=== PATIENT | female | born 1965 | race Caucasian/White ===

== ENCOUNTER 2023-03-09 05:40 | Observation (INO) ==
--- NOTE | 2023-02-08 09:48 | PAT Medication Instructions ---
Medication Instructions Date of Service February 08, 2023 Home Medications Lactobacillus acidophilus 1.5 mg (250 million cell) capsule (Probiotic Acidophilus) 1,000 mmu cells PO QAM celecoxib 200 mg capsule (Celebrex) 200 mg PO Q2D PRN Pain glucosamine-chondroitin 250 mg-200 mg tablet (Osteo Bi-Flex) 1 tab PO QAM ibuprofen 800 mg tablet 800 mg PO UD PRN Pain loratadine 10 mg tablet 10 mg PO QAM oxybutynin chloride 5 mg tablet 5 mg PO QAM ASK your prescriber and surgeon celecoxib 200 mg capsule (Celebrex) 200 mg PO Q2D PRN Pain ibuprofen 800 mg tablet 800 mg PO UD PRN Pain STOP taking 2 weeks before surgery glucosamine-chondroitin 250 mg-200 mg tablet (Osteo Bi-Flex) 1 tab PO QAM DO NOT take the morning of surgery Lactobacillus acidophilus 1.5 mg (250 million cell) capsule (Probiotic Acidophilus) 1,000 mmu cells PO QAM loratadine 10 mg tablet 10 mg PO QAM oxybutynin chloride 5 mg tablet 5 mg PO QAM OTHERWISE NOTHING TO EAT OR DRINK AFTER MIDNIGHT: Other Notes If you have any questions please call us at [phone] or [phone] or [phone] or [phone]
--- NOTE | 2023-02-17 14:57 | Anesthesiology Consultation ---
Date of Service February 17, 2023 Assessment & Plan (1) Encounter for pre-operative examination: - anesthesia concerns: patient states does NOT want neuraxial anesthesia due to anxiety/concerns regarding this including chronic significant back pain. She denies concerns with peripheral nerve block. General vs neuraxial anesthesia discussed. Anesthesia with R TKA 7 yrs ago unknown, patient believes was done under general anesthesia-reports no complications. Final discussion for patient with anesthesiologist day of surgery. - Outpatient joint assessment: Patient is currently scheduled for inpatient pathway. If re-evaluated pending system levels during current pandemic/surgeon requests outpatient pathway, patient is not recommended candidate for outpatient joint program from anesthesia standpoint. She expresses concerns with same day discharge. Chart Review Chart Review: Acceptable Risk for Surgery and Patient seen in Pre Admission Testing Teaching & Discussion Pre-Anesthesia Teaching/Discussion Notes: Instructed NPO after midnight before surgery, except medications with 15 cc of water. Medication instructions provided according to the PAT guidelines. History Surgery Operation Date: 03/09/23 14:50 Proposed Procedures p Left Total Knee Arthroplasty - Parminder Welch MD Height/Weight Height: 5 ft 4 in Weight: 94.801 kg Allergies Allergy/AdvReac Type Severity Reaction Status Date / Time adhesive AdvReac Severe steri Verified 02/08/23 08:41 strips --- hives Medications Home Medications Medication Instructions Recorded Confirmed Last Taken Lactobacillus acidophilus 1.5 mg 1,000 mmu cells PO QAM 02/08/23 02/08/23 Unknown (250 million cell) capsule (Probiotic Acidophilus) celecoxib 200 mg capsule (Celebrex) 200 mg PO Q2D PRN Pain 02/08/23 02/08/23 Unknown glucosamine-chondroitin 250 mg-200 1 tab PO QAM 02/08/23 02/08/23 Unknown mg tablet (Osteo Bi-Flex) ibuprofen 800 mg tablet 800 mg PO UD PRN Pain 02/08/23 02/08/23 Unknown loratadine 10 mg tablet 10 mg PO QAM 02/08/23 02/08/23 Unknown oxybutynin chloride 5 mg tablet 5 mg PO QAM 02/08/23 02/08/23 Unknown Past Medical History Medical History (Updated 02/17/23 @ 15:02 by Aure Grissom PA-C) Anxiety no medications Chronic back pain periodically Degenerative disc disease History of COVID-19 Spring 2022 (most recent) loss taste and smell for about 1.5 weeks-mostly resolved, some residual impact on smell-denies hospitalization Hypertension lifestyle control Hypothyroidism "advised to take a low dose of thyroid medication" but patient can not tolerate the medication, lab work is borderline. follows with PCP (Piper Cordova PA-C) Patient denies h/o stroke, seizures, heart attack, heart failure, DM, blood clots or blood transfusions. Exercise / Class Metabolic Activity III < 4 Walking/Shop/Light housework (denies chest discomfort or shortness of breath with usual activities) Past Family History Family History Other No family history of adverse response to anesthesia Past Surgical History Surgical History History of adenoidectomy History of bilateral tubal ligation History of nephrectomy 2003 to donate to her son -- possibly the left kidney History of right knee joint replacement History of tonsillectomy Past Anesthesia History No Hx of Anesthesia Complications and No Family Hx of Anesthesia Complications History of PONV No Hx of PONV and No Hx of Motion Sickness Social History Smoking Status: Never smoker Do You Dip or Chew Tobacco: No Hx Alcohol Use: Yes Alcohol type: hard liquor alcohol intake frequency: holidays/special occasions only Hx Substance Use: No substance use type: does not use Review of Systems Occasional snoring, denies witnessed apneas. Patient denies chest pain, shortness of breath, dyspnea on exertion, reflux, fever, chills, cough, wheezing, or palpitations. Physical Exam Vital Signs Vitals BP 128/80 P 73 TEMP 98.7 SP02 96% on RA RESP 17 Physical Full cervical extension range of motion without pain TMD 3.5 finger breadths Mallampati Score 2 Dentition: multiple caps, denies chipped or loose teeth, caps, implants or bridges Lungs: normal respiratory effort. Good air movement, clear throughout to auscultation, no adventitious breath sounds Cardiac: regular rate and rhythm, no murmurs noted Carotid arteries: negative bruit bilat Lab Results Anesthesia Preop Results Results Anesthesia Widget: WBC 6.03 K/ul (4.8-10.8) 02/17/23 Hgb 14.3 g/dl (12.0-16.0) 02/17/23 Hct 42.7 % (37.0-47.0) 02/17/23 Plt 295 K/uL (130-400) 02/17/23 Na 142 mmol/L (136-145) 02/17/23 K 3.9 mmol/L (3.5-5.1) 02/17/23 Cl 108 mmol/L (98-107) H 02/17/23 CO2 28 mmol/L (21-32) 02/17/23 BUN 20 mg/dl (6-23) 02/17/23 Creat 0.81 mg/dl (0.6-1.2) 02/17/23 Glucose Level 84 mg/dl (70-99(Fasting)) 02/17/23 PT 10.3 Seconds (9.0-12.0) 02/17/23 PTT 26.7 Seconds (21.0-31.0) 02/17/23 INR 0.9 (0.9-1.1) 02/17/23 TSH 2.870 uIu/ml (0.300-4.500) 02/17/23 Free T4 0.88 ng/dl (0.61-1.60) 02/17/23 Urine Color Yellow 02/17/23 Urine Appearance Clear (Clear) 02/17/23 Urine pH 6.5 (4.5-7.5) 02/17/23 Urine Specific [place] 1.018 (1.000-1.030) 02/17/23 Urine Protein Negative (Negative) 02/17/23 Urine Glucose (UA) Negative (Negative) 02/17/23 Urine Ketones Negative (Negative) 02/17/23 Urine Blood Negative (Negative) 02/17/23 Urine Nitrite Negative (Negative) 02/17/23 Urine Bilirubin Negative (Negative) 02/17/23 Urine Urobilinogen Negative (Negative) 02/17/23 Urine Leukocyte Esterase Negative (Negative) 02/17/23 Blood Type O Positive 02/17/23 Antibody Screen NEGATIVE 02/17/23 Testing Electrocardiogram Date: 02/17/23 NSR with sinus arrhythmia, rate 68 bpm Chest X-Ray Date: 02/17/23 Mild S-shaped scoliosis No acute process COVID-19 Risk Screen Screening Information COVID-19 Screen Date: 02/17/23 Exposure 21 Days Family/Household +COVID Last 21 Days: No Exposure 10 Days Any COVID Exposure Last 10 Days: No Symptoms Last 10 Days Experienced COVID Sx Last 10 Days: No + COVID 0-90 Days COVID + in Last 0-90 Days: No
--- NOTE | 2023-02-27 08:25 | History & Physical Report ---
Date of Service February 27, 2023 Assessment & Plan (1) Primary osteoarthritis of left knee: Plan: Treatment options discussed with the patient. She has failed conservative measures and would like to proceed with surgical intervention. Risks, benefits and alternatives to surgery including but not limited to infection, DVT, pain, stiffness, need for revision surgery, damage to blood vessels, damage to nerves, PE, , were discussed with the patient and they wish to proceed. Plan on left total knee arthroplasty at [facility] on March [address] Welch. Plan on aspirin 81 mg twice daily for 1 month postop for DVT prophylaxis. We will plan on outpatient physical therapy. All questions answered. Patient will follow-up postoperatively. History of Present Illness Chief Complaint: Left knee pain Primary Care Provider: NO PCP 57-year-old female with past medical history significant for previous right total knee arthroplasty, hypertension, hypothyroidism who presents with ongoing left knee pain. Patient has failed conservative measures including injections. Her pain is interfering with her daily activities. She would like to proceed with surgical intervention. Patient denies headaches, sweats, fevers, chills, double vision, blurred vision, cough, sore throat, dysphagia, chest pain, sob, wheezing, n/v/d/c, numbness, tingling, fatigue, urinary symptoms, mood disorders. ROS positive for left knee pain and stiffness. Allergies Allergy/AdvReac Type Severity Reaction Status Date / Time adhesive Allergy Unknown BLISTERS Verified 02/18/23 13:40 FROM TAPE, STERISTRIPS No Known Drug Allergies Allergy Unknown NONE Verified 02/18/23 13:40 Home Medications Medication Instructions Recorded Confirmed Type FIBER OTC 2 tab PO QAM ##0 06/08/16 History ZANTAC 1 tab PO PRN ##0 06/08/16 History Acetaminophen (Tylenol Extra 1,000 mg PO Q8H 21 days #126 tabs 07/09/16 Rx Strength) Aspirin (Aspirin EC Low Dose) 81 mg PO BID 30 days ##0 07/09/16 Rx Celecoxib (Celebrex) 200 mg PO BID 30 days #60 caps 07/09/16 Rx Oxycodone HCl 5 - 10 mg PO Q4H PRN Pain #60 tabs 07/09/16 Rx Oxycodone HCl (Oxycontin) 10 mg PO Q12 ##20 07/09/16 Rx Lactobacillus acidophilus 1.5 mg 1,000 mmu cells PO QAM 02/08/23 02/08/23 History (250 million cell) capsule (Probiotic Acidophilus) celecoxib 200 mg capsule (Celebrex) 200 mg PO Q2D PRN Pain 02/08/23 02/08/23 History glucosamine-chondroitin 250 mg-200 1 tab PO QAM 02/08/23 02/08/23 History mg tablet (Osteo Bi-Flex) ibuprofen 800 mg tablet 800 mg PO UD PRN Pain 02/08/23 02/08/23 History loratadine 10 mg tablet 10 mg PO QAM 02/08/23 02/08/23 History oxybutynin chloride 5 mg tablet 5 mg PO QAM 02/08/23 02/08/23 History Past Med/Surg History Medical History (Updated 02/27/23 @ 08:25 by Ferny Bishop PA-C) Anxiety no medications Chronic back pain periodically Degenerative disc disease History of COVID-spring (most recent) loss taste and smell for about 1.5 weeks-mostly resolved, some residual impact on smell-denies hospitalization Hypertension lifestyle control Hypothyroidism "advised to take a low dose of thyroid medication" but patient can not tolerate the medication, lab work is borderline. follows with PCP (Piper Cordova PA-C) Surgical History (Updated 02/18/23 @ 13:40 by Araceli Fischer) History of adenoidectomy History of bilateral tubal ligation History of nephrectomy 2003 to donate to her son -- possibly the left kidney History of right knee joint replacement History of tonsillectomy Family History (System 02/18/23 @ 13:40 by Araceli Fischer) Other No family history of adverse response to anesthesia Social History (System 02/18/23 @ 13:40 by Araceli Fischer) Smoking Status: Never smoker Second Hand Exposure: No; Do You Dip or Chew Tobacco: No; Hx Alcohol Use: Yes Alcohol type: hard liquor Hx Substance Use: No Preferred Language: Cuban Communication Ability: Effective Ballistician Required: No Beliefs That Will Affect Care: None Current Living Situation: Spouse Feels Safe at Home: Yes Assistive Devices: Glasses Review of Systems All systems reviewed & are unremarkable except as noted in HPI & below Physical Exam Constitutional: well developed and well nourished; no acute distress Eyes: PERRL, conjunctivae normal, anicteric sclerae ENMT: external ear and nose normal, oropharynx normal Neck: trachea midline, no thyromegaly Respiratory: normal respiratory effort, lungs clear to auscultation Cardiovascular: RRR, no murmur, no edema Musculoskeletal: Left knee: Range of motion is 10 to 100 degrees. Valgus alignment. Tenderness lateral joint line. Mich's is positive. Stable valgus and varus stress test. Moderate effusion. Skin: no rashes, warm and dry Neurologic: patellar DTR's 2+ bilat, sensation intact Psychiatric: A+Ox3, euthymic affect Results & Data Diagnostic Findings Left knee radiographs demonstrate mild to moderate arthritic changes. Joint spaces maintained. MRI demonstrates complex tearing lateral meniscus with a radial tear and extrusion. There is areas of full-thickness cartilage loss lateral compartment.
[2023-03-09] MEDS ORDERED: METOCLOPRAMIDE HCL 10 MG TABLET PO SCH (06:00)
[2023-03-09] MEDS ORDERED: ceFAZolin 2000MG 2,000 MG/15 ML SYR IV SCH (06:00)
[2023-03-09] MEDS ORDERED: dexAMETHasone 4 MG TAB PO SCH (06:00)
[2023-03-09] MEDS ORDERED: TRANEXAMIC ACID 1,000 MG **IV Pre-op IV SCH (06:00)
[2023-03-09] MEDS ORDERED: ROPIVACAINE 0.5% HCL/PF 150 MG, BUPIVACAINE 0.75% MPF 20 ML, EPINEPHrine 30MG/30ML (OR ... INSTIL SCH (06:00)
[2023-03-09] MEDS ORDERED: LR 15ML/HR IV SCH (06:00)
[2023-03-09] MEDS ORDERED: CeleBREX 200 MG CAP PO SCH (06:00)
[2023-03-09] MEDS ORDERED: ACETAMINOPHEN 500 MG TAB PO SCH (06:00)
[2023-03-09] MEDS ORDERED: GABAPENTIN 600 MG DOSE PO SCH (06:00)
[2023-03-09] MEDS ORDERED: FAMOTIDINE 20 MG TAB PO SCH (06:00)
[2023-03-09] MEDS ORDERED: TRANEXAMIC ACID 1,000 MG **IV Intra-op IV SCH (06:00)
[2023-03-09] MEDS ORDERED: EPINEPHrine INJ 1 MG/ML AMP ONE (06:26)
[2023-03-09] MEDS ORDERED: BUPIVACAINE 0.5 % 5 MG/1 ML PF 10ML VIAL ONE (06:26)
[2023-03-09] MEDS ORDERED: BUPIVACAINE 0.25% PF 30 ML VIAL ONE (06:27)
[2023-03-09] MEDS ORDERED: DEXAMETHASONE SOD INJ 4 MG/ML VIAL ONE (06:27)
[2023-03-09] MEDS ORDERED: PROPOFOL IV EMULSION 10 MG/ML 20 ML VIAL IV ONE ×2 (06:57→09:14)
[2023-03-09] MEDS ORDERED: MIDAZOLAM HCL 1 MG/ML 2ML VIAL ONE ×2 (06:58→08:05)
[2023-03-09] MEDS ORDERED: fentaNYL citrate PF 100 MCG/2 ML VIAL ONE (06:58)
[2023-03-09] MEDS ORDERED: ORTHO JOINT ANESTHETIC ONE (07:08)
[2023-03-09] MEDS ORDERED: ATROPINE SULFATE 0.1 MG/ML 10ML SYR IV PRN (07:13)
[2023-03-09] MEDS ORDERED: PROMETHAZINE HCL 6.25 MG in SODIUM CHLORIDE 0.9% 50 ML IV PRN (07:13)
[2023-03-09] MEDS ORDERED: fentaNYL citrate PF 100 MCG/2 ML VIAL IV PRN (07:13)
[2023-03-09] MEDS ORDERED: ePHEDrine sulfate 50 MG/ML AMP IV PRN (07:13)
[2023-03-09] MEDS ORDERED: ONDANSETRON INJ 2 MG/ML 2 ML VIAL IV PRN ×2 (07:13→11:41)
--- NOTE | 2023-03-09 07:13 | Anesthesiology Consultation ---
Date of Service March 09, 2023 Assessment & Plan Chart Review Chart Review: Acceptable Risk for Surgery and Patient NOT seen in Pre Admission Testing Consults Requested none ASA ASA3 Proposed Anesthesia Anesthesia Type: MAC Spinal Regional Regional Laterality: Left Site: Adductor Canal Risk / Benefits Reviewed With: PT / POA / Parent / Guardian, Accepts Plan and Informed Consent Obtained Additional Notes extensive conversation regarding spinal versus general. i explained that either would be acceptable method of anesthesia, she did have spinal in 2016. she elects to proceed with spinal anesthesia. History Surgery Operation Date: 03/09/23 07:40 Proposed Procedures p Left Total Knee Arthroplasty - Parminder Welch MD Height/Weight Height: 5 ft 4 in Weight: 97.579 kg Allergies Allergy/AdvReac Type Severity Reaction Status Date / Time adhesive Allergy Unknown BLISTERS Verified 03/09/23 06:09 FROM TAPE, STERISTRIPS No Known Drug Allergies Allergy Unknown NONE Verified 03/09/23 06:09 Medications Home Medications Medication Instructions Recorded Confirmed Last Taken FIBER OTC 2 tab PO QAM ##0 06/08/16 03/09/23 Unknown ZANTAC 1 tab PO PRN ##0 06/08/16 03/09/23 Unknown Acetaminophen (Tylenol Extra 1,000 mg PO Q8H 21 days #126 tabs 07/09/16 03/09/23 Unknown Strength) Aspirin (Aspirin EC Low Dose) 81 mg PO BID 30 days ##0 07/09/16 03/09/23 Unknown Celecoxib (Celebrex) 200 mg PO BID 30 days #60 caps 07/09/16 03/09/23 03/08/23 09:00 Oxycodone HCl 5 - 10 mg PO Q4H PRN Pain #60 tabs 07/09/16 03/09/23 Unknown Oxycodone HCl (Oxycontin) 10 mg PO Q12 ##20 07/09/16 03/09/23 Unknown Lactobacillus acidophilus 1.5 mg 1,000 mmu cells PO QAM 02/08/23 03/09/23 03/08/23 09:00 (250 million cell) capsule (Probiotic Acidophilus) celecoxib 200 mg capsule (Celebrex) 200 mg PO Q2D PRN Pain 02/08/23 03/09/23 03/08/23 09:00 glucosamine-chondroitin 250 mg-200 1 tab PO QAM 02/08/23 03/09/23 02/17/23 mg tablet (Osteo Bi-Flex) ibuprofen 800 mg tablet 800 mg PO UD PRN Pain 02/08/23 03/09/23 Unknown loratadine 10 mg tablet 10 mg PO QA 02/08/23 03/09/23 03/08/23 09:00 oxybutynin chloride 5 mg tablet 5 mg PO QA 02/08/23 03/09/23 03/08/23 09:00 Active Medications Generic Name Dose Route Start Last Admin Trade Name Frerachael PRN Reason Stop Dose Admin Acetaminophen 1,000 mg 03/09/23 06:00 03/09/23 06:24 Acetaminophen 500 Mg Tab PO 03/09/23 18:00 1,000 mg PREOP JANENE Administration Celecoxib 200 mg 03/09/23 06:00 03/09/23 06:25 Celebrex 200 Mg Cap PO 03/09/23 18:00 200 mg PREOP JANENE Administration Dexamethasone 8 mg 03/09/23 06:00 03/09/23 06:24 Dexamethasone 4 Mg Tab PO 03/09/23 18:00 8 mg PREOP JANENE Administration Famotidine 20 mg 03/09/23 06:00 03/09/23 06:24 Famotidine 20 Mg Tab PO 03/09/23 18:00 20 mg PREOP JANENE Administration Gabapentin 600 mg 03/09/23 06:00 03/09/23 06:24 Gabapentin 600 Mg Dose PO 03/09/23 18:00 600 mg PREOP JANENE Administration Lactated Ringer's 1,000 mls @ 15 mls/hr 03/09/23 06:00 03/09/23 06:25 Lr IV 03/10/23 05:59 15 mls/hr .Q24H JANENE Administration Metoclopramide HCl 10 mg 03/09/23 06:00 03/09/23 06:24 Metoclopramide Hcl 10 Mg Tablet PO 03/09/23 18:00 10 mg PREOP JANENE Administration NPO Date Last Intake of Fluids: 03/08/23 Time Last Intake of Fluids: 20:30 Date Last Intake of Solids: 03/08/23 Time Last Intake of Solids: 20:30 Past Medical History Medical History Anxiety no medications Chronic back pain periodically Degenerative disc disease History of COVID-spring2 (most recent) loss taste and smell for about 1.5 weeks-mostly resolved, some residual impact on smell-denies hospitalization Hypertension lifestyle control Hypothyroidism "advised to take a low dose of thyroid medication" but patient can not tolerate the medication, lab work is borderline. follows with PCP (Piper Cordova PA-C) Exercise / Class Metabolic Activity II 4-5 Yardwork/Stairs/Walk up hill Past Family History Family History (System 02/18/23 @ 13:40 by Araceli Fischer) Other No family history of adverse response to anesthesia Past Surgical History Surgical History History of adenoidectomy History of bilateral tubal ligation History of nephrectomy 2003 to donate to her son -- possibly the left kidney History of right knee joint replacement History of tonsillectomy Past Anesthesia History No Hx of Anesthesia Complications and No Family Hx of Anesthesia Complications History of PONV No Hx of PONV and No Hx of Motion Sickness Social History Smoking Status: Never smoker Do You Dip or Chew Tobacco: No Hx Alcohol Use: Yes Alcohol type: hard liquor alcohol intake frequency: holidays/special occasions only Hx Substance Use: No substance use type: does not use Physical Exam Vital Signs Last Vital Signs Temp 36.5 C 03/09/23 06:16 Pulse 75 03/09/23 06:16 Resp 22 03/09/23 06:16 BP 143/86 H 03/09/23 06:16 Pulse Ox 98 03/09/23 06:16 O2 Del Method Room Air 03/09/23 06:16 ENMT Mouth: no dentition abnormality Thyromental Distance: > or= 3.5 Finger Breadths Mallampati Class: II Neck normal visual inspection Respiratory normal respiratory effort Auscultation: lungs clear to auscultation bilaterally Cardiovascular Rate/Rhythm: regular rate and regular rhythm Psychiatric Orientation: alert Testing Electrocardiogram Date: 02/17/23 NSR with sinus arrhythmia, rate 68 bpm Chest X-Ray Date: 02/17/23 Mild S-shaped scoliosis No acute process
--- NOTE | 2023-03-09 07:23 | History & Physical Bridge Note ---
Date of Service March 09, 2023 History & Physical Bridge Note I have examined the patient, reviewed the History & Physical and in the interval since the performance of the History & Physical I have noted the following changes of clinical significance: no changes noted
[2023-03-09] MEDS ORDERED: PHENYLEPHRINE HCL 10 MG/ML VIAL ONE (08:50)
[2023-03-09] MEDS ORDERED: PHENYLEPHRINE 100MCG/ML 5ML SYR ONE (09:07)
--- NOTE | 2023-03-09 10:15 | Operative Report ---
Post Operative Report Pre & Post Diagnosis Operation Date: 03/09/23 07:40 Pre-Op Diagnosis: Left Knee Osteoarthritis Post-Op Diagnosis: Left Knee Osteoarthritis I identified the patient and participated in the time-out.: Yes Procedure Operation Date: 03/09/23 07:40 Actual Procedures p Left Total Knee Arthroplasty(Left) - Parminder Welch MD Surgeon Parminder Welch MD [facility] Family Living Professor Wilfrido RIDDLE Estimated Blood Loss 5 Findings Consistent with Post-Op Diagnosis Specimens bone cuts Drains 2 Hemovac Anesthesia Type MAC Spinal Regional Complications none Disposition Disposition: Recovery Room Indications 57-year-old female with chronic progressive osteoarthritis left knee failed conservative management. Patient had successful right knee replacement 2015. Left knee has osteoarthritis patellofemoral joint and lateral compartment close to being [id number] in the lateral compartment. Description of Procedure The patient was taken to the operating room and anesthetized under [ Spinal MAC regional block anesthesia]. Patient was placed supine on the the operating table. A pneumatic tourniquet was placed about the [ left] upper thigh. The knee exam demonstrated [ valgus knee no instability moderate effusion good range of motion moderate obesity upper thigh]. The involved leg was elevated exsanguinated with Esmarch bandage and the pneumatic tourniquet was raised to [ 325] millimeters mercury, later raised to 350 due to bleeding at lower level setting. A longitudinal incision was made across the anterior knee. Skin flaps were elevated. An incision was made into the medial retinaculum and extended up into the mid third of the quadriceps tendon and extended down to the tibial tubercle. Intra-articular findings demonstrated [ patellofemoral and lateral compartment osteoarthritis with grade 4 changes on the femoral condyle grade 3 changes tibial plateau grade 3 patellofemoral]. The knee was exposed by e xcising cruciate ligaments and menisci. The infrapatellar fat pad was resected. The fat pad over the anterior femur at the upper aspect of the articular surface was resected for placement of the component in that area. A subperiosteal peel lateral release was performed around the patella. The[ Sanz & Nephew journey2.0 posterior stabilized] total knee arthroplasty system was utilized for the procedure. The custom femoral cutting guide was pinned in position. The distal femoral cut was made. The size [ 3], 5 in 1 cutting block was placed. The anterior posterior and chamfer cuts were made. The knee was extended and a free hand cut technique was performed to the patella. The patella with was measured and the width was reproduced using a [32] patella component. 3 drill holes are made for the patella component pegs. The tibia was then subluxed. The custom tibial cutting block was pinned in position and the proximal tibial cut was made with the oscillating saw. The size [ 2] tibial trial was externally rotated in line with the tibial tubercle and pinned in position. The punch for the stem was used. The femoral trial was inserted and centered the notch cutting devices were used and the collet was placed. Tibial trials were used for the insert. The size [15mm] trial gave balanced ligaments through full range of motion. Patella tracking was assessed with range of motion. The patella tracked [ centrally]. The trials were removed. The Orthomix anesthetic cocktail was injected per protocol. The cut bone surfaces and soft tissue were copiously irrigated with pulsatile lavage saline solution. The final components were cemented with Refobacin cement. The final components were [ Sanz and nephew journey 2.0 posterior stabilized size 3 left femoral component, 2 left tibial component, 15 mm left tibial posterior stabilized polyethylene insert, 32 mm symmetrical polyethylene patella]. After the cement cured, the Betadine soak was used for 3 minutes. The knee was then copiously irrigated with pulsatile lavage saline solution. 2 drains were brought out laterally connected to Hemovac. The quadriceps tendon and medial retinaculum were closed with interr upted [id number] #1 Vicryl sutures. The knee was taken through full range of motion and repair was secure. Knee range of motion was[ 0 through 130 degrees]. the subcutaneous tissues were closed with 2-0 Vicryl sutures. The skin was closed with [ [place]]. A sterile dressing was applied. The tourniquet was let down and the patient had good capillary refill to the extremity. The patient tolerated the procedure well. My physician costumer assistant [ Wilfrido RIDDLE] participated as customer service assistant and was integral part in all aspects of the procedure including prepping, draping, leg positioning, soft tissue retraction, instrument management and assisted in the closure ,dressings application and will participate in postoperative care the patient. I attest to the content of the Intraoperative Record and any orders documented therein. Any exceptions are noted below.
--- NOTE | 2023-03-09 11:23 | Anesthesiology Progress Note ---
Date of Service March 09, 2023 Anesthesia Post Procedure Vital Signs Vital Signs: Temp Pulse Resp BP Pulse Ox O2 Del Method O2 Flow Rate 03/09/23 11:20 65 19 106/70 96 Room Air 03/09/23 11:15 56 L 15 103/64 94 Room Air 03/09/23 11:10 36.3 C L 66 20 108/66 97 Room Air 03/09/23 11:00 67 17 98/62 L 95 Room Air 03/09/23 10:50 71 19 96/50 L 95 Room Air 03/09/23 10:40 71 15 97/59 L 99 Oxymask 11 03/09/23 10:34 36.8 C 82 20 93/55 L 98 Oxymask 11 03/09/23 06:16 36.5 C 75 22 143/86 H 98 Room Air Transfer of Care Handoff Completed per policy Notes Mental Status: alert / awake / arousable Patient Amnestic to Procedure: Yes Nausea / Vomiting: adequately controlled Pain: adequately controlled Airway Patency, RR, SpO2: stable & adequate BP & HR: stable & adequate Hydration State: stable & adequate Neuraxial Anesthesia: was administered and sensory block is resolving Anesthetic Complications: no major complications apparent and Pt Satisfied with anesthetic care
[2023-03-09] MEDS ORDERED: KETOROLAC TROMETHAMINE 15 MG/ML VIAL IV PRN (11:41)
[2023-03-09] MEDS ORDERED: HYDROmorphone INJ 0.5 MG/0.5 ML SYR IV PRN (11:41)
[2023-03-09] MEDS ORDERED: MAGNESIUM HYDROXIDE SUSP 30 ML UDC PO PRN (11:41)
[2023-03-09] MEDS ORDERED: bisacodyL 10 MG SUPP PR PRN (11:41)
[2023-03-09] MEDS ORDERED: NALOXONE HCL 0.4 MG/1 ML VIAL/CARP IV PRN (11:41)
--- NOTE | 2023-03-09 11:58 | XRay Report ---
XR knee LT 1 or 2V routine CLINICAL HISTORY: Postoperative evaluation. COMPARISON: None FINDINGS: Alignment of the total left knee arthroplasty is anatomic. There is no periprosthetic frac ture or unexpected radiopaque foreign body. There are drains and skin dayan. IMPRESSION: Expected findings following total left knee arthroplasty. ACT 112: Negative or not required by law. Electronically signed by: Mandeep Puckett M.D. 03/09/2023 11:57 AM
--- NOTE | 2023-03-09 12:43 | Hospitalist Consultation ---
Date of Consultation March 09, 2023 Assessment & Plan (1) Status post total left knee replacement: (2) Primary osteoarthritis of left knee: This is a 57yo F with a PMH of OA, overactive bladder disorder who is POD#0 s/o Left Total Knee Arthroplasty by Dr. Welch. POD#0 s/o Left Total Knee Arthroplasty by Dr. Welch Per ortho for pain control, wound care, anticoagulation and activities Monitor H&H, (pre-op hgb 14.3, EBL 5ml) Continue incentive spirometry, PT/OT when appropriate (3) Anxiety: Stable, not on any medications (4) Hypertension: Not on home meds, managed with lifestyle modifications (5) Overactive bladder: Oxybutynin daily DVT Ppx: aspirin BID per ortho Code status: FULL PCP: FREDDIE Cordova ([facility]) Dispo: Obs med/surg Patient seen in collaboration with Dr. Styles. Please see addendum. I spent a total of 50 minutes coordinating, documenting, and providing care for this patient excluding time spent in the performance of separately billed services. Supervising Physician Co-Signing Physician Notes I have seen and examined the patient and have discussed the case with the provider above. I agree with the assessment and plan as stated. 57-year-old female status post left total knee arthroplasty, POD 0. Pain is controlled and she has been ambulating to and from the bathroom per nursing without much issue. Ice and surgical dressing in place. Exam is unremarkable and within normal limits. She is morbidly obese. History and medications reviewed and confirmed. Agree with management as listed above. Thank you for this consultation. We will continue to follow the patient throughout her hospital stay. DO Jensen History of Present Illness Reason for Consultation: post op med mgmt Attending Physician: Parminder Welch MD History of Present Illness This is a 57yo F with a PMH of OA, overactive bladder disorder who is POD#0 s/o Left Total Knee Arthroplasty by Dr. Welch. Resting comfortably and feeling well post-operatively. Minimal surgical site pain. No paresthesias or pain distal to surgical site. No CP or SOB. Has not yet eaten since surgery. No F/C, lightheadedness, N/V, abd pain, dysuria, diarrhea or constipation. Receives primary care from FREDDIE Cordova of [facility]. Only prescription medication is oxybutynin. Allergies Allergy/AdvReac Type Severity Reaction Status Date / Time adhesive Allergy Unknown BLISTERS Verified 03/09/23 06:09 FROM TAPE, STERISTRIPS No Known Drug Allergies Allergy Unknown NONE Verified 03/09/23 06:09 Home Medications Medication Instructions Recorded Confirmed Type FIBER OTC 2 tab PO QAM ##0 06/08/16 03/09/23 History ZANTAC 1 tab PO PRN ##0 06/08/16 03/09/23 History Oxycodone HCl 5 - 10 mg PO Q4H PRN Pain #60 tabs 07/09/16 03/09/23 Rx Oxycodone HCl (Oxycontin) 10 mg PO Q12 ##20 07/09/16 03/09/23 Rx Lactobacillus acidophilus 1.5 mg 1,000 mmu cells PO QAM 02/08/23 03/09/23 History (250 million cell) capsule (Probiotic Acidophilus) celecoxib 200 mg capsule (Celebrex) 200 mg PO Q2D PRN Pain 02/08/23 03/09/23 History glucosamine-chondroitin 250 mg-200 1 tab PO QAM 02/08/23 03/09/23 History mg tablet (Osteo Bi-Flex) ibuprofen 800 mg tablet 800 mg PO UD PRN Pain 02/08/23 03/09/23 History loratadine 10 mg tablet 10 mg PO QAM PRN Allergy Symptoms 02/08/23 03/09/23 History oxybutynin chloride 5 mg tablet 5 mg PO QAM 02/08/23 03/09/23 History acetaminophen 500 mg tablet 1,000 mg PO Q8 14 days #84 tabs 03/09/23 03/09/23 Rx (Tylenol Extra Strength) aspirin 81 mg tablet,delayed 81 mg PO BID 30 days #60 tabs 03/09/23 03/09/23 Rx release Patient History Medical History (Updated 03/09/23 @ 12:57 by Alexa Goyal PA-C) Anxiety no medications Chronic back pain periodically Degenerative disc disease History of COVID-spring (most recent) loss taste and smell for about 1.5 weeks-mostly resolved, some residual impact on smell-denies hospitalization Hypertension lifestyle control Hypothyroidism "advised to take a low dose of thyroid medication" but patient can not tolerate the medication, lab work is borderline. 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 History of right knee joint replacement History of tonsillectomy Family History Other Hypertension No family history of adverse response to anesthesia Social History (Updated 03/09/23 @ 14:33 by Alexa Goyal PA-C) Smoking Status: Never smoker Second Hand Exposure: No; Do You Dip or Chew Tobacco: No; Tobacco Cessation Education Requested by Patient: No Hx Alcohol Use: Yes Alcohol type: hard liquor Alcohol Intake Frequency: 2-3 x/Week Hx Substance Use: No Preferred Language: Peruvian Communication Ability: Effective 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 Physical Exam Physical Exam: General Appearance: WD/WN, vitals as above, NAD, sitting up in bed, pleasant, conversing easily Head: normocephalic, atraumatic Eyes: normal inspection, PERRL, conjunctivae normal ENT: external ear and nose normal, oropharynx normal Neck: normal visual inspection, trachea midline, no thyromegaly Respiratory: normal respiratory effort, lungs clear to auscultation, no wheeze, rales, rhonchi Cardiovascular: regular rate, rhythm, normal peripheral pulses, no BLE edema Abdomen/GI: normal bowel sounds, soft, nontender, no hepatosplenomegaly Extremities/Musculoskeletal: + L knee surgical dressing c/d/i, drain visualized, ice and SCDs in place, extremities motor strength 5/5 Neurologic: PERRL, no dysarthria, CN's II-XI intact bilaterally and moves all extremities Psychiatric: A+Ox3, euthymic affect Skin: no rashes, normal color, warm/dry Results & Data Results & Data Vital Signs (Past 12 Hours) Vital Signs Temp Pulse Resp BP BP Pulse Ox O2 Del Method 03/09/23 12:40 36.5 C 60 16 124/73 96 Room Air 03/09/23 12:10 36.6 C 58 L 16 103/68 97 Room Air 03/09/23 11:20 65 19 106/70 96 Room Air 03/09/23 11:15 56 L 15 103/64 94 Room Air 03/09/23 11:10 36.3 C L 66 20 108/66 97 Room Air 03/09/23 11:00 67 17 98/62 L 95 Room Air 03/09/23 10:50 71 19 96/50 L 95 Room Air 03/09/23 10:40 71 15 97/59 L 99 Oxymask 03/09/23 10:34 36.8 C 82 20 93/55 L 98 Oxymask 03/09/23 06:16 36.5 C 75 22 143/86 H 98 Room Air O2 Flow Rate 03/09/23 12:40 03/09/23 12:10 03/09/23 11:20 03/09/23 11:15 03/09/23 11:10 03/09/23 11:00 03/09/23 10:50 03/09/23 10:40 11 03/09/23 10:34 11 03/09/23 06:16
[2023-03-09] MEDS: SODIUM CHLORIDE 0.9% 1000ML 1,000 ML IV SCH (15:09)
[2023-03-09] MEDS: ACETAMINOPHEN 500 MG TAB PO SCH ×2 (15:15→22:47)
[2023-03-09] MEDS: ceFAZolin 2000MG 2,000 MG/15 ML SYR IV SCH (17:47)
[2023-03-09] MEDS: DOCUSATE SODIUM 100 MG CAP PO SCH (20:41)
[2023-03-09] MEDS: ASPIRIN 81 MG ECTAB PO SCH (20:41)
[2023-03-09] MEDS: oxyCODONE HCL IR 5 MG TAB (IMMEDIATE RELEASE) PO PRN (20:42)
[2023-03-09] MEDS ORDERED: SENNA 8.6 MG TAB PO SCH (21:00)
[2023-03-10] MEDS: SODIUM CHLORIDE 0.9% 1000ML 1,000 ML IV SCH (01:29)
[2023-03-10] MEDS: ceFAZolin 2000MG 2,000 MG/15 ML SYR IV SCH (01:36)
[2023-03-10] MEDS: oxyCODONE HCL IR 5 MG TAB (IMMEDIATE RELEASE) PO PRN (06:27)
[2023-03-10] MEDS: ACETAMINOPHEN 500 MG TAB PO SCH (06:27)
--- NOTE | 2023-03-10 06:38 | Orthopedic Progress Note ---
Date of Service March 10, 2023 Assessment & Plan (1) Primary osteoarthritis of left knee: Plan: Postop day 1 status post left total knee arthroplasty. PT/OT protocols. Weightbearing as tolerated. DVT prophylaxis-aspirin p.o. twice daily, SCDalec, ZOILA paulino. Pain management as written. A.m. labs pending. DC planning-patient planning for outpatient PT upon discharge. Admission and Anticipated Discharge Date Admission Date: March 09, 2023 Subjective Postop day 1 Patient lying in bed sleeping but easily awoken. No complaints this morning. Pain is controlled. She denies any shortness of breath, chest pain, lightheadedness. Physical Exam Physical Exam: Dressings are clean, dry, and intact. Calves are soft nontender. Neurovascular intact. Toes are mobile. She has good dorsiflexion and plantarflexion of the left foot. Hemovac drainage was 75 cc from the previous shift. Results & Data Vital Signs (Past 12 Hours) Vital Signs Temp Pulse Resp BP Pulse Ox O2 Del Method 03/10/23 06:29 36.7 C 57 L 16 109/70 97 Room Air 03/10/23 01:30 36.7 C 65 18 112/71 96 Room Air 03/09/23 22:49 36.7 C 56 L 17 98/63 L 96 Room Air 03/09/23 20:09 36.7 C 65 18 114/71 96 Room Air
[2023-03-10 06:59] LABS: Hematocrit (blood only) 37.9 % (37.0-47.0); Hemoglobin 12.3 g/dl (12.0-16.0); Mean Corpuscular Hemoglobin 29.8 pg (25.0-34.0); Mean Corpuscular Hgb Conc 32.5 g/dL (32.0-36.0); Mean Corpuscular Volume 91.8 fL (80.0-100.0); Mean Platelet Volume 10.3 fL (9.4-12.4); Platelet Count 246 K/uL (130-400); RDW Coefficient of Variation 13.1 % (11.5-14.5); RDW Standard Deviation 43.7 fL (36.4-46.3); Red Blood Count 4.13 M/uL (4.20-5.40); White Blood Count 12.91 K/ul (4.8-10.8)
[2023-03-10 07:20] LABS: BUN Creatinine Ratio 20.7 (10-20); Calcium 8.9 mg/dl (8.6-10.3); Creatinine Clr Calc Pharmacy 85.9 ml/min; Est GFR (African American) 92.1 ml/min; Est GFR (Non-African American) 79.4 ml/min; Potassium 4.3 mmol/L (3.5-5.1)
[2023-03-10] MEDS ORDERED: PANTOprazole 40 MG TAB PO SCH (09:00)
[2023-03-10] MEDS ORDERED: ADVANCED PROBIOTIC 1250 MG CAPSULE PO SCH (09:00)
[2023-03-10] MEDS ORDERED: OXYBUTYNIN CHLORIDE XL 5 MG TABCR PO SCH (09:00)
[2023-03-10] MEDS ORDERED: MULTIVITAMIN TAB PO SCH (09:00)
[2023-03-10] MEDS ORDERED: oxyBUTYnin chloride 5 MG TAB PO SCH (09:00)
[2023-03-10] MEDS ORDERED: LORATADINE 10 MG TAB PO SCH (09:00)
[2023-03-10] MEDS: ASPIRIN 81 MG ECTAB PO SCH (09:40)
[2023-03-10] MEDS: DOCUSATE SODIUM 100 MG CAP PO SCH (09:41)
--- NOTE | 2023-03-10 09:59 | Hospitalist Progress Note ---
Date of Service March 10, 2023 Assessment & Plan (1) Status post total left knee replacement: (2) Primary osteoarthritis of left knee: Plan: This is a 57yo F with a PMH of OA, overactive bladder disorder who is POD#0 s/o Left Total Knee Arthroplasty by Dr. Welch. POD#1 s/o Left Total Knee Arthroplasty by Dr. Welch Per ortho for pain control, wound care, anticoagulation and activities Monitor H&H, hgb today stable at 12.3 (pre-op hgb 14.3, EBL 5ml) Continue incentive spirometry, PT/OT when appropriate (3) Anxiety: Plan: Stable, not on any medications (4) Hypertension: Plan: Not on home meds, managed with lifestyle modifications (5) Overactive bladder: Plan: Oxybutynin daily DVT Ppx: aspirin BID per ortho Code status: FULL PCP: FREDDIE Cordova ([facility]) Dispo: Obs med/surg, plan for dc today I spent a total of 35 minutes coordinating, documenting, and providing care for this patient excluding time spent in the performance of separately billed services. Admission and Anticipated Discharge Date Admission Date: March 09, 2023 Supervising Physician Co-Signing Physician Notes delayed entry date of service noted above Attending Addendum: care coordinated with KRISTOPHER Alexa Goyal please refer to her notes for full details, I agree with her notes patient seen and examined, records reviewed by myself as well Ruddy Selby MD Subjective Seen and examined in 323. Feeling well today with minimal surgical site pain. Participated with PT without issue. No F/C, lightheadedness, CP, SOB, N/V, abdominal pain, dysuria, diarrhea. Passing flatus. Review of Systems Review of Systems: At least ten systems reviewed and negative except as noted in the HPI. Physical Exam Physical Exam: Gen: WD/WN, NAD, sitting in bedside chair, A&Ox3 HEENT: Normocephalic, atraumatic, conjunctivae moist, sclerae anicteric, mucous membranes moist Lung: Clear to Auscultation bilaterally, no wheezes/rales/rhonchi Heart: Regular rate, regular rhythm, no murmurs, rubs, or gallops Abdomen: Soft, NT, ND +BS x 4 Extremities: + L knee surgical dressing c/d/i, drain visualized, minimal edema Skin: Warm, no rash Results & Data Results & Data Vital Signs (Past 12 Hours) Vital Signs Temp Pulse Resp BP Pulse Ox O2 Del Method 03/10/23 06:29 36.7 C 57 L 16 109/70 97 Room Air 03/10/23 01:30 36.7 C 65 18 112/71 96 Room Air 03/09/23 22:49 36.7 C 56 L 17 98/63 L 96 Room Air Laboratory Results Short CBC 03/10/23 Range/Units 06:42 WBC 12.91 H (4.8-10.8) K/ul Hgb 12.3 (12.0-16.0) g/dl Hct 37.9 (37.0-47.0) % Plt Count 246 (130-400) K/uL BMP 03/10/23 06:42 Sodium 142 Potassium 4.3 Chloride 111 H Carbon Dioxide 27 BUN 17 Creatinine 0.82 Glucose 117 H Calcium 8.9 Diagnostic Findings Knee X-Ray 03/09/23 10:43 XR knee LT 1 or 2V routine CLINICAL HISTORY: Postoperative evaluation. COMPARISON: None FINDINGS: Alignment of the total left knee arthroplasty is anatomic. There is no periprosthetic fracture or unexpected radiopaque foreign body. There are drains and skin dayan. IMPRESSION: Expected findings following total left knee arthroplasty. ACT 112: Negative or not required by law. Electronically signed by: Mandeep Puckett M.D. 03/09/2023 11:57 AM
--- NOTE | 2023-03-15 08:49 | Discharge Summary ---
Date of Service March 15, 2023 Admission HPI Per Admitting Provider 57-year-old female with past medical history significant for previous right total knee arthroplasty, hypertension, hypothyroidism who presents with ongoing left knee pain. Patient has failed conservative measures including injections. Her pain is interfering with her daily activities. She would like to proceed with surgical intervention. Patient denies headaches, sweats, fevers, chills, double vision, blurred vision, cough, sore throat, dysphagia, chest pain, sob, wheezing, n/v/d/c, numbness, tingling, fatigue, urinary symptoms, mood disorders. ROS positive for left knee pain and stiffness. Admission Exam Per Admitting Provider Physical Exam Constitutional: well developed and well nourished; no acute distress Eyes: PERRL, conjunctivae normal, anicteric sclerae ENMT: external ear and nose normal, oropharynx normal Neck: trachea midline, no thyromegaly Respiratory: normal respiratory effort, lungs clear to auscultation Cardiovascular: RRR, no murmur, no edema Musculoskeletal: Left knee: Range of motion is 10 to 100 degrees. Valgus alignment. Tenderness lateral joint line. Mich's is positive. Stable valgus and varus stress test. Moderate effusion. Skin: no rashes, warm and dry Neurologic: patellar DTR's 2+ bilat, sensation intact Psychiatric: A+Ox3, euthymic affect Principal Diagnosis Left knee Osteoarthritis Discharge Data Allergies Allergy/AdvReac Type Severity Reaction Status Date / Time adhesive Allergy Unknown BLISTERS Verified 03/09/23 06:09 FROM TAPE, STERISTRIPS No Known Drug Allergies Allergy Unknown NONE Verified 03/09/23 06:09 Consultations 03/04/23 10:45 Consult Hospitalist Routine Procedures Performed Operation Date: 03/09/23 07:40 Actual Procedures p Left Total Knee Arthroplasty(Left) - Parminder Welch MD Ordered Studies 03/09/23 05:00 US - OR guided needle placemen Routine Hospital Course (1) Primary osteoarthritis of left knee: Patient:TERA STILL Admit Date:03/09/23 MR#:[id number] Att Phy:Parminder Welch M.D. Acct ID:[id number] Hilda Phy:Leila Cordova PA-C Date:1965 Fam Phy: Age:57 Location:3E Sex:F Room/Bed:E323-1 cc: ~ *NOTICE TO RECEIVING [employer]/AGENCY This information is strictly Confidential and protected under [place] law. [place] law prohibits you from making any further disclosure of this information unless further disclosure is expressly permitted by the written consent of the person to whom it pertains or is authorized by law. A general authorization for the release of medical or other information is not sufficient for this purpose. Hospital accepts no responsibility if the information is made available to any other person, INCLUDING THE PATIENT. Date of Service March 10, 2023 Assessment & Plan (1) Primary osteoarthritis of left knee: Plan: Postop day 1 status post left total knee arthroplasty. PT/OT protocols. Weightbearing as tolerated. DVT prophylaxis-aspirin p.o. twice daily, SCDs, ZOILA paulino. Pain management as written. A.m. labs pending. HI planning-patient planning for outpatient PT upon discharge. Admission and Anticipated Discharge Date Admission Date: March 09, 2023 Subjective Postop day 1 Patient lying in bed sleeping but easily awoken. No complaints this morning. Pain is controlled. She denies any shortness of breath, chest pain, lightheadedness. Physical Exam Physical Exam: Dressings are clean, dry, and intact. Calves are soft nontender. Neurovascular intact. Toes are mobile. She has good dorsiflexion and plantarflexion of the left foot. Hemovac drainage was 75 cc from the previous shift. Results & Data Vital Signs (Past 12 Hours) Vital Signs Temp Pulse Resp BP Pulse Ox O2 Del Method 03/10/23 06:29 36.7 C 57 L 16 109/70 97 Room Air 03/10/23 01:30 36.7 C 65 18 112/71 96 Room Air 03/09/23 22:49 36.7 C 56 L 17 98/63 L 96 Room Air 03/09/23 20:09 36.7 C 65 18 114/71 96 Room Air Signed By: <Electronically signed by Kam Lazar M.D.> 03/10/23 1318 <Electronically signed by Wilfrido Baltazar PA-C> 03/10/23 0638 Created:03/10/23 0636 HOSPITALIST HI NOTE: Assessment & Plan (1) Status post total left knee replacement: (2) Primary osteoarthritis of left knee: Plan: This is a 57yo F with a PMH of OA, overactive bladder disorder who is POD#0 s/o Left Total Knee Arthroplasty by Dr. Welch. POD#1 s/o Left Total Knee Arthroplasty by Dr. Welch Per ortho for pain control, wound care, anticoagulation and activities Monitor H&H, hgb today stable at 12.3 (pre-op hgb 14.3, EBL 5ml) Continue incentive spirometry, PT/OT when appropriate (3) Anxiety: Plan: Stable, not on any medications (4) Hypertension: Plan: Not on home meds, managed with lifestyle modifications (5) Overactive bladder: Plan: Oxybutynin daily DVT Ppx: aspirin BID per ortho Code status: FULL PCP: FREDDIE Cordova ([facility]) Dispo: Obs med/surg, plan for dc today Total Time Total Time Spent Total Time Spent (In Minutes): 5 Discharge Plan Discharge Items Patient Disposition: Home - Self-Care Reason For Visit: Left Knee Osteoarthritis Discharge Diagnosis: Left Knee Osteoarthritis Activity: Per Instructions section Weightbearing: Left weightbearing Weightbearing Comment: As tolerated with walker Non-emergency contact: Surgeon Call non-emergency contact if: you have any medication questions, your pain is not controlled, your temperature is above 101.5, your wound has increased redness and your wound has increased drainage Follow-up/Referrals: Parminder Welch MD [Surgeon] - (Follow up with Dr Welch or his PA in 2 weeks from the day of your surgery for your first post operative visit) PCP,NO [Physician] - Diet: Regular Addtl Attending Provider Instructions: ACTIVITY RECOMMENDATIONS: SELF CARE INSTRUCTIONS AFTER TOTAL KNEE REPLACEMENT A. You may need to continue a physical therapy program after discharge from the hospital. There are several options available to you. Your doctor will assist you in selecting the best one for you. 1. An out-patient facility 2 to 3 times a week for therapy or home therapy. 2. Continue working on all exercises taught to you in the hospital. Your goals should be to increase bending of your knee to 90 degrees and beyond and to fully straighten your knee. B. You may progress at your own pace from walking with a walker or crutches to a cane; then to no assistive devices. C. Make walking a part of your daily routine. Be up as much as comfortable with rest periods throughout the day. Rest with leg elevation is very important. Use the ice wrap frequently for the first 3-4 weeks. D. There are no restrictions on activities. You may ride in a car, shop, participate in dairy quality assurance officer and all social activities. E. Wear the long elastic stockings (ZOILA hose) 20 hours a day for 2 weeks after surgery. They can be removed several times a day for laundering and for a bath. F. You may shower 48 hours from the day of your surgery, NO tub baths, hot tubs, or swimming pools until cleared by your doctor. SPECIAL CARE INSTRUCTIONS: VERY IMPORTANT TO READ AND REVIEW A. There are a few signs you need to watch for after you are home. Call [facility] if you notice any of the followin. Increased severe knee pain. Some pain is expected especially when you exercise. 2. Increased swelling in your leg or knee; pain or swelling of the calf muscle in either lower leg. 3. Any fluid drainage from the incision. 4. Shortness of breath or chest pain. B. Please call [facility] at if you have any concerns or questions about your operation or recovery. The doctor or his nurse will return your call promptly. C. You must take antibiotics before dental work, bladder, bowel or other surgery. Your doctor will provide you with a permanent care to carry describing this precaution. IMPORTANT: * REMEMBER TO TAKE ASPIRIN, 81 MG, TWICE DAILY FOR 4 WEEKS UNLESS OTHERWISE DIRECTED. THIS IS YOUR BLOOD THINNER. * HIGH RISK PATIENTS MAY BE PRESCRIBED A STRONGER BLOOD THINNER. THIS WILL BE PROVIDED AT DISCHARGE. * CALL IF INCREASED PAIN, REDNESS, DRAINAGE OR FEVER GREATER THAT 101. * WEAR ZOILA HOSE 20 HOURS PER DAY FOR 2 WEEKS. * CHANGE YOUR DRESSING DAILY FOR THE FIRST WEEK. YOU MAY USE AN CONNER WRAP TO KEEP THE DRESSING IN PLACE. AFTER THE FIRST WEEK, YOU MAY CHANGE THE DRESSING EVERY OTHER DAY IF THE WOUND IS REMAINING DRY. KEEP THE WOUND COVERED UNTIL SEEN IN THE OFFICE. YOU MAY SHOWER IN IN 48 HOURS. DO NOT SOAK THE WOUND. NO TUB BATHS, HOT TUBS, OR SWIMMING POOLS UNTIL CLEARED BY YOUR PHYSICIAN. . FOLLOW UP VISIT: If appointment is not already scheduled: Please call [facility] to make a follow-up appointment for 2 weeks after your surgery at . Stand-Alone Forms: My [facility] [employer], Smoking Cessation Medications and DC Order Prescriptions: New aspirin 81 mg Tablet,Delayed Release (Dr/Ec) 81 mg PO BID 30 Days Qty: 60 0RF acetaminophen [Tylenol Extra Strength] 500 mg Tablet 1,000 mg PO Q8 14 Days Qty: 84 0RF polyethylene glycol 3350 [Miralax] 17 gram powder in packet 17 g PO DAILY PRN (Reason: constipation) Qty: 5 0RF oxycodone 5 mg tablet 5 mg PO Q4H MDD 6 PRN (Reason: pain) Qty: 30 0RF Continued FIBER OTC 2 tab PO QAM Qty: 0 celecoxib [Celebrex] 200 mg Capsule 200 mg PO Q2D PRN (Reason: Pain) oxybutynin chloride 5 mg Tablet 5 mg PO QAM loratadine 10 mg Tablet 10 mg PO QAM PRN (Reason: Allergy Symptoms) Probiotic Acidophilus 1.5 mg (250 million cell) Capsule 1,000 mmu cells PO QAM Held ibuprofen 800 mg Tablet 800 mg PO UD PRN (Reason: Pain) Hold Instructions: Hold use of ibuprofen while taking Aspirin twice daily. glucosamine-chondroitin [Osteo Bi-Flex] 250-200 mg Tablet 1 tab PO QAM Hold Instructions: please hold for 2 weeks. Rx Instructions: give after food/meal Discontinued ZANTAC 1 tab PO PRN Qty: 0 Oxycodone HCl 5 MG tablet 5 - 10 mg PO Q4H PRN (Reason: Pain) Qty: 60 0RF Oxycodone HCl (Oxycontin) 10 MG [id number] 10 mg PO Q12 Qty: 20 0RF Discharge Orders: Discharge Order (Routine); Ordered 03/10/23 Ordered By: Wilfrido Gongora/Other Patient Handouts: Pain Post Op Non Rx Relief, Managing Post-Op Pain at Home Admission Data Admit Date/Time: 03/09/23 10:43 Attending Provider: Parminder Welch Admit Provider: Parminder Welch Primary Care Provider: Leila Cordova Other Providers: Shalini Morales ; Ruddy Selby ; Alexa Goyal Other Interventions: Discharge Summary Assessment (RN) Last Done: 03/10/23 11:01
== END 2023-03-10 11:54 | disposition home or self-care (01) ==
LOC: ASU 05:40 → 3E 05:40 → MERGE 14:50